=== PATIENT | female | born 1970 | race Caucasian/White ===

== ENCOUNTER 2016-07-25 08:41 | Day surgery (SDC) | payer OTHER ==
[~2016-07-25 08:41] MED LIST: CABERGOLINE PO; LEVOTHYROXIN88 MC1 PO; MEDDOSEPAK PO; SYNTHROID50 MCG PO; TESSALON PER100 MG PO; ZITHROMAX250 MG PO
[2016-07-25] MEDS ORDERED: PERCOCET 5/325M1 TAB PO ×2 (11:27→11:28)
[2016-07-25 14:08] VITALS: BP 138/87
== END 2016-07-25 12:00 | disposition home or self-care (01) | DRG 349 ==
LOC: ENDO 08:41 → ORM 15:00
PROVIDERS: ATTEND Internal Medicine Gastroenterology
PROC: 06LY4CC Occlusion of Hemorrhoidal Plexus with Extraluminal Device, Percutaneous Endoscopic Approach (ICD-10-PCS; principal; 2016-07-25)
PROC: 0DBE8ZX Excision of Large Intestine, Via Natural or Artificial Opening Endoscopic, Diagnostic (ICD-10-PCS; 2016-07-25)
DX: K64.8 Other hemorrhoids (principal); K64.4 Residual hemorrhoidal skin tags; R19.7 Diarrhea, unspecified; R10.11 Right upper quadrant pain; R10.13 Epigastric pain; K21.9 Gastro-esophageal reflux disease without esophagitis